=== PATIENT | male | born 1960 | race Caucasian/White ===

== ENCOUNTER 2023-08-02 20:01 | Observation (INO) ==
[2023-08-02 21:00] LABS: Albumin Globulin Ratio 1.6 (0.9-2); Albumin Level 4.6 gm/dl (3.4-5.0); BUN Creatinine Ratio 18.9 (10-20); Bilirubin,Total 0.6 mg/dl (0.2-1.0); Calcium 9.3 mg/dl (8.6-10.3); Creatinine Clr Calc Pharmacy 76.9 ml/min; Est GFR (African American) 81.5 ml/min; Est GFR (Non-African American) 70.3 ml/min; Globulin 2.8 gm/dl (2.5-4.0); Magnesium 2.1 mg/dl (1.7-2.4); Potassium 4.4 mmol/L (3.5-5.1); Total Protein 7.4 gm/dl (6.0-8.3)
[2023-08-02 21:06] LABS: Troponin I High Sensitivity 9.5 pg/ml (0-20)
[2023-08-02 21:11] LABS: Basophils # (auto) 0.02 K/uL (0.00-0.20); Basophils % (auto) 0.2 %; Eosinophils # (auto) 0.12 K/uL (0.00-0.50); Eosinophils % (auto) 1.4 %; Hematocrit (blood only) 48.9 % (42.0-52.0); Hemoglobin 16.6 g/dl (14.0-18.0); Immature Granulocytes # (auto) 0.06 K/uL (0.01-0.20); Immature Granulocytes % (auto) 0.7 %; Lymphocytes # (auto) 0.88 K/uL (1.20-3.40); Lymphocytes % (auto) 10.5 %; Mean Corpuscular Hemoglobin 30.3 pg (25.0-34.0); Mean Corpuscular Hgb Conc 33.9 g/dL (32.0-36.0); Mean Corpuscular Volume 89.2 fL (80.0-100.0); Mean Platelet Volume 10.6 fL (9.4-12.4); Monocytes # (auto) 0.63 K/uL (0.11-0.59); Monocytes % (auto) 7.5 %; Neutrophils # (auto) 6.68 K/uL (1.40-6.50); Neutrophils % (auto) 79.7 %; Platelet Count 235 K/uL (130-400); RDW Coefficient of Variation 12.5 % (11.5-14.5); RDW Standard Deviation 41.5 fL (36.4-46.3); Red Blood Count 5.48 M/uL (4.70-6.10); White Blood Count 8.39 K/ul (4.8-10.8)
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
[2023-08-02] MEDS: SODIUM CHLORIDE 0.9% 1,000 ML IV ONE (22:40)
--- NOTE | 2023-08-02 23:18 | CT Scan Report ---
Exam(s): CT C SPINE EXAM: CT Cervical Spine Without Intravenous Contrast CLINICAL HISTORY: Reason for exam: fall, head/neck injury. TECHNIQUE: Axial computed tomography images of the cervical spine without intravenous contrast. CTDI is 38 mGy and DLP is 624 mGy-cm. Automated exposure control was utilized for the study. A dose lowering technique was utilized adhering to the principles of ALARA. COMPARISON: CT 03/19/2015 FINDINGS: Vertebrae: No acute fracture or malalignment. Soft tissues: Unremarkable. IMPRESSION: No acute fracture or malalignment. Electronically signed by: Nabeel Siddiqui MD 08/02/23 23:16 PM
--- NOTE | 2023-08-02 23:19 | CT Scan Report ---
Exam(s): CT HEAD Without Contrast EXAM: CT Head Without Intravenous Contrast CLINICAL HISTORY: Reason for exam: fall, head/neck injury. TECHNIQUE: Axial computed tomography images of the head/brain without intravenous contrast. CTDI is 38 mGy and DLP is 624 mGy-cm. Automated exposure control was utilized for the study. A dose lowering technique was utilized adhering to the principles of ALARA. COMPARISON: MRI 08/11/2018 FINDINGS: Artifacts: Images are mildly degraded by motion artifact. Brain: No hemorrhage, extra-axial fluid collection, mass effect, or edema. Ventricles: Unremarkable. Bones/joints: Unremarkable. No fracture. Soft tissues: Unremarkable. Sinuses: No acute sinusitis. Mastoid air cells: Unremarkable as visualized. IMPRESSION: 1. No acute intracranial abnormality. Electronically signed by: Nabeel Siddiqui MD 08/02/23 23:18 PM
[2023-08-03] MEDS: LIDOCAINE/EPINEPH/TETRACAINE 1 EA SYR EXT STA (00:08)
[2023-08-03] MEDS: DIPHTHER/TETAN/PERTUS Vaccine (Tdap, Adol/Adult) 0.5mL IM ONE (00:08)
[2023-08-03 00:15] LABS: Appearance Urine Clear (Clear); Bilirubin Urine Negative (Negative); Blood Urine Negative (Negative); Color Urine Yellow; Glucose Urine UA 3+ (Negative); Ketones Urine Negative (Negative); Leukocyte Esterase Urine Negative (Negative); Nitrite Urine Negative (Negative); Protein Urine Negative (Negative); Specific Gravity Urine 1.022 (1.000-1.030); Urobilinogen Urine Negative (Negative); pH Urine 7.5 (4.5-7.5)
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
--- NOTE | 2023-08-03 00:39 | Emergency Department Note ---
ED Visit Note I was asked to repair this patient's scalp laceration by Dr. Burciaga. Please refer to his dictation for full details. In short, the patient had a syncopal episode and fell hitting his head. The patient has a 2 cm laceration to the posterior aspect of the scalp. The edges gape minimally apart with traction. No deep structures are seen injured within the base of the wound. No foreign bodies are noted. No active bleeding. Due to the concern that the patient may require additional CT scan or MRI imaging while inpatient, sutures were placed rather than gregory. Risks and benefits of the procedure were discussed. Verbal consent was obtained to perform the procedure and the procedure was performed by myself. Using sterile technique the wound was cleaned with Betadine. The area was sterilely draped. Let gel had been in place for 45 minutes for anesthesia of the wound. Once the patient was anesthetized, the wound was copiously irrigated under pressure with sterile saline. The wound was explored and was as described above. The laceration was repaired using 4 simple interrupted 5-0 nylon sutures with the wound edges being well approximated. The patient tolerated the procedure well. Hemostasis was achieved. The area was cleaned with sterile saline and dressed with bacitracin ointment and bandage. .
[2023-08-03] MEDS: AMITRIPTYLINE HCL 25 MG TAB PO ONE (01:23)
[2023-08-03] MEDS: MEMANTINE HCL 5 MG TAB PO ONE (01:23)
[2023-08-03] MEDS: CARBIDOPA/LEVODOPA 25/100MG TAB PO ONE (01:23)
[2023-08-03] MEDS: LACTATED RINGER'S 1,000 ML IV SCH (04:10)
[2023-08-03] MEDS ORDERED: GLUCOSE 40% GEL 15 GM TUBE PO PRN (04:16)
[2023-08-03] MEDS ORDERED: ALUMINUM/MAGNESIUM SUSP 30 ML UDC PO PRN (04:16)
[2023-08-03] MEDS ORDERED: MAGNESIUM HYDROXIDE SUSP 30 ML UDC PO PRN (04:16)
[2023-08-03] MEDS ORDERED: GLUCOSE 10 TAB/TUBE PO PRN (04:16)
[2023-08-03] MEDS ORDERED: POLYETHYLENE (MIRALAX) 17 GM PACK PO PRN (04:16)
[2023-08-03] MEDS ORDERED: GLUCAGON FOR INJ 1 MG VIAL SQ PRN (04:16)
[2023-08-03] MEDS ORDERED: ACETAMINOPHEN 325 MG TAB PO PRN (04:16)
[2023-08-03] MEDS ORDERED: CARBOHYDRATES FOR HYPOGLYCEMIA PO PRN (04:16)
[2023-08-03] MEDS ORDERED: DEXTROSE 50% 50 ML SYRINGE IV PRN (04:16)
[2023-08-03 04:53] LABS: Basophils # (auto) 0.02 K/uL (0.00-0.20); Basophils % (auto) 0.2 %; Eosinophils # (auto) 0.03 K/uL (0.00-0.50); Eosinophils % (auto) 0.2 %; Hematocrit (blood only) 46.6 % (42.0-52.0); Hemoglobin 15.9 g/dl (14.0-18.0); Immature Granulocytes # (auto) 0.06 K/uL (0.01-0.20); Immature Granulocytes % (auto) 0.5 %; Lymphocytes # (auto) 0.71 K/uL (1.20-3.40); Lymphocytes % (auto) 5.9 %; Mean Corpuscular Hemoglobin 30.6 pg (25.0-34.0); Mean Corpuscular Hgb Conc 34.1 g/dL (32.0-36.0); Mean Corpuscular Volume 89.6 fL (80.0-100.0); Mean Platelet Volume 10.3 fL (9.4-12.4); Monocytes # (auto) 1.03 K/uL (0.11-0.59); Monocytes % (auto) 8.5 %; Neutrophils # (auto) 10.27 K/uL (1.40-6.50); Neutrophils % (auto) 84.7 %; Platelet Count 214 K/uL (130-400); RDW Coefficient of Variation 12.7 % (11.5-14.5); RDW Standard Deviation 41.8 fL (36.4-46.3); White Blood Count 12.12 K/ul (4.8-10.8)
--- NOTE | 2023-08-03 05:02 | Critical Care Consultation ---
Date of Consultation August 03, 2023 Assessment & Plan (1) Syncope: (2) Complete heart block: (3) Pacemaker malfunction: (4) Laceration of scalp: (5) Parkinson disease, symptomatic: (6) Diabetes: (7) Hypertension: Plan Impression: 63 yom w/ PMH Pacemaker/AICD, DM type II, HTN, Parkinson's disease presents to the ICU following multiple episodes of syncope and fainting earlier the day in which he sustained a closed head injury. CT head and C-spine unremarkable. Had episode of complete heart block without pacemaker capture approximately 15 seconds in which she experienced presyncope in the emergency department. Admitted to ICU for close monitoring per cardiology request. Neuro - Closed head injury: Asymptomatic. Laceration to scalp with sutures and currently bandaged without issue. CT head negative for acute intracranial findings. CT spine unremarkable. Monitor Parkinson's diseasecontinue carbidopa/levodopa Cardiac - Complete heart block/pacemaker malfunctionpatient with approximately 15-second episode with complete heart block without capture of pacemaker on rhythm strip in which she experienced presyncopal episode. Per history, likely happening for the past 6 weeks. - Cardiology consulted, admitted to ICU - Pacer pads on patient - hold BB - No need for dopamine drip at this time - troponin pending, f/u TTE - continuous monitoring on ECG HTN- hold antihypertensives for now Respiratory - No history of pulmonary disease. Currently maintaining oxygen saturation on room air. Continuous monitoring pulse ox GI - N.p.o. for now RENAL/LYTES - Creatinine within normal limits, monitor routine BMPs and replete electrolytes as indicated LR @80 ml/hr - Strict I's and O's ENDO - DM type 2- continue sliding scale/ basal bolus. Currently euglycemic HEME - H/H stable, monitor routine cbc ID - No indication for infectious process at this time Thank you for allowing us to participate in the care of this patient. Please refer to my attending physician's documentation for any further recommendations. Supervising Physician Co-Signing Physician Notes I saw and evaluated the patient with MAURICIO Ramos, and agree with findings and plan as documented in the note. 63-year-old male presented to the hospital with complaints of syncope Past medical history: Parkinson's, status post pacemaker/ICD placement, hypertension Patient was sent to the ICU because he was found to have 15 seconds of no ventricular rhythm At the time of examination patient was not in any distress He denied any chest pain. No abdominal pain No nausea or vomiting No headache, no dizziness, no blurry vision Patient had another 5 seconds of no capture of the P waves overnight Constitutional: No acute distress HEENT: EOMI, PERRLA Respiratory system: Good air entry bilaterally, no wheeze, no rhonchi, mild crackles bilateral lower lobes CVS: S1-S2 positive, no murmurs or gallops Abdomen: Soft, nontender, nondistended, positive bowel sounds x4 Extremities: +2 pulses bilaterally radialis/ dorsalis pedis, no cyanosis, +1 pitting edema bilateral lower extremity Neuro: Awake alert oriented x3 Psych: Normal mood and affect G/U: No Burch --Prophylaxis VTE: IPC GI: None Lines: Peripheral Diet: N.p.o. Plan: In/out: +1000 mL Patient seems to be going into intermittent heart block, Cardiology has been consulted to look into his AICD Continue to monitor on telemetry. Hold blood pressure medication keep him n.p.o. till cardiology sees the patient Follow-up magnesium and phosphorus Please note the above document was generated using voice recognition software. It may contain grammatical, syntax or spelling errors.Any formal questions or concerns about the content, text or information contained within the body of this dictation should be directly addressed to the provider for clarification. History of Present Illness Attending Physician: Armando James MD History of Present Illness The patient is a 63-year-old male with past medical history significant for HTN, pacemaker/ICD, Parkinson's disease, who presented to the emergency department after sustaining a fall at the grocery store in which she lost consciousness and presented with laceration to the back of his head. CT head and CT spine negative. He received sutures to the laceration to the head, and has no neurological deficits. He has been having episodes of syncope over the last 4 to 6 weeks, in which he feels abdominal pain prior to dizziness or sometimes losing consciousness. In the emergency department, he again had an episode in which he began to have abdominal pain followed by presyncope. On the monitor at that time, patient went into complete heart block with failure to capture on pacemaker for approximately 15 seconds. Following this event, the patient is asymptomatic. This is the third episode the patient has had in the past 24 hours. Cardiology consulted and recommended admitting to ICU for further management. On arrival to the ICU the patient is alert and oriented without acute distress, and is hemodynamically stable without use of vasopressors. Currently maintaining oxygen saturation on room air. He currently denies headache, dizziness, weakness or numbness, changes in vision, recent illness or fevers, cough or congestion, sore throat, chest pain or palpitations, shortness of breath, back pain, swelling hands or feet, changes in gait. Allergies Allergy/AdvReac Type Severity Reaction Status Date / Time azithromycin AdvReac Vomiting Verified 08/03/23 00:09 Home Medications Medication Instructions Recorded Confirmed Type amitriptyline 25 mg tablet 25 mg PO HS 08/03/23 08/03/23 History aspirin 81 mg tablet,delayed 81 mg PO QAM 08/03/23 08/03/23 History release carbidopa 25 mg-levodopa 100 mg 1.5 tab PO TID 08/03/23 08/03/23 History tablet carvedilol 6.25 mg tablet 6.25 mg PO AMHS 08/03/23 08/03/23 History empagliflozin 10 mg tablet 10 mg PO QAM 08/03/23 08/03/23 History (Jardiance) escitalopram oxalate 10 mg tablet 15 mg PO QAM 08/03/23 08/03/23 History memantine 5 mg tablet 5 mg PO [facility] 08/03/23 08/03/23 History omeprazole 40 mg capsule,delayed 40 mg PO DAILYBB 08/03/23 08/03/23 History release rasagiline 0.5 mg tablet 0.5 mg PO QA 08/03/23 08/03/23 History simvastatin 20 mg tablet 20 mg PO HS 08/03/23 08/03/23 History Patient History Social History Smoking Status: Never smoker Second Hand Exposure: No; Do You Dip or Chew Tobacco: No; Tobacco Cessation Education Requested by Patient: No Hx Alcohol Use: No Hx Substance Use: No Preferred Language: Gibraltarian Communication Ability: Effective Tool And Die Designer Required: No Beliefs That Will Affect Care: None Current Living Situation: Alone Other Information That Helps Us Care for You: No Feels Safe at Home: Yes Safety Concerns: Feels Safe At This Time Assistive Devices: Glasses Review of Systems 2 Review of Systems: All systems reviewed & are unremarkable except as noted in HPI & below Physical Exam 2 Constitutional: cooperative and comfortable Eyes: PERRL, conjunctivae normal, anicteric sclerae ENMT: external ear and nose normal, oropharynx normal Neck: trachea midline, no thyromegaly Respiratory: normal respiratory effort, lungs clear to auscultation Cardiovascular: RRR, no murmur, no edema Heart Sounds: normal S1 and normal S2; no murmur Extremities: no edema Gastrointestinal (Abdomen): normal bowel sounds, soft, nontender, no hepatosplenomegaly Musculoskeletal: no cyanosis or clubbing, extremities motor strength 5/5 Skin: no rashes, warm and dry Neurologic: PERRL, EOMI, accommodation nl, no face palsy, no dysarthria Psychiatric: A+Ox3, euthymic affect Results & Data Results & Data Vital Signs (Past 12 Hours) Vital Signs Temp Pulse Pulse Resp BP BP Pulse Ox 08/03/23 04:18 36.5 C 75 18 142/80 H 95 08/03/23 04:09 78 17 95 08/03/23 04:03 08/03/23 03:51 100 H 13 08/03/23 02:21 86 16 08/03/23 02:15 92 H 24 08/03/23 02:09 83 24 155/91 H 08/03/23 02:03 79 08/03/23 01:59 18 L 08/03/23 01:42 85 14 08/03/23 01:03 82 18 08/03/23 00:51 96 H 25 H 08/03/23 00:42 93 H 22 08/03/23 00:33 86 24 08/03/23 00:12 87 20 08/03/23 00:12 85 08/02/23 23:12 88 14 08/02/23 23:06 90 14 08/02/23 23:00 176/99 H 08/02/23 22:45 81 16 08/02/23 21:39 78 13 163/93 H 08/02/23 21:00 82 17 177/95 H 08/02/23 20:30 76 16 176/97 H 98 08/02/23 20:19 37.2 C 75 18 182/107 H 97 08/02/23 20:07 82 O2 Del Method 08/03/23 04:18 Room Air 08/03/23 04:09 08/03/23 04:03 Room Air 08/03/23 03:51 08/03/23 02:21 08/03/23 02:15 08/03/23 02:09 08/03/23 02:03 08/03/23 01:59 08/03/23 01:42 08/03/23 01:03 08/03/23 00:51 08/03/23 00:42 08/03/23 00:33 08/03/23 00:12 08/03/23 00:12 08/02/23 23:12 08/02/23 23:06 08/02/23 23:00 08/02/23 22:45 08/02/23 21:39 08/02/23 21:00 08/02/23 20:30 Room Air 08/02/23 20:19 Room Air 08/02/23 20:07 Laboratory Results 08/03/23 04:33 08/03/23 04:33 Coding Level of Care Code 08379 IN/OBS CONSULT LVL 5,80M Diagnoses Syncope R55 Syncope type: unspecified Complete heart block I44.2 Pacemaker malfunction T82.111A Laceration of scalp S01.01XA Encounter type: initial encounter Parkinson disease, symptomatic G20.A1 Diabetes E11.9 Hypertension I10 Time Spent (min) 52 (1) Syncope Syncope type: unspecified Qualified Code(s): R55 - Syncope and collapse (4) Laceration of scalp Encounter type: initial encounter Qualified Code(s): S01.01XA - Laceration without foreign body of scalp, initial encounter
[2023-08-03 05:07] LABS: BUN Creatinine Ratio 19.8 (10-20); Calcium 8.8 mg/dl (8.6-10.3); Creatinine Clr Calc Pharmacy 88.9 ml/min; Est GFR (African American) 97.1 ml/min; Est GFR (Non-African American) 83.8 ml/min; Potassium 4.2 mmol/L (3.5-5.1)
[2023-08-03] MEDS: INSULIN ASPART PER UNIT CHARGE SC SCH ×2 (05:09→11:39)
--- NOTE | 2023-08-03 06:35 | XRay Report ---
XR chest 1V portable CLINICAL HISTORY: Syncopal episode. COMPARISON STUDY: Chest radiograph March 19, 2015. FINDINGS: Left subclavian pacer/AICD is in place. Lung volumes are normal. Lungs are clear. There is no pneumothorax or pleural effusion. Cardiac size is normal. Mediastinal contours are normal. There i s no evidence for pulmonary edema. IMPRESSION: No acute cardiopulmonary findings. ACT 112: Negative or not required by law. Electronically signed by: Broderick Price M.D. 08/03/2023 6:33 AM
[2023-08-03 07:08] LABS: Estimated Average Glucose 123 mg/dl; Hemoglobin A1C 5.9 % (4.5-5.6)
[2023-08-03 07:24] LABS: Troponin I High Sensitivity 15.5 pg/ml (0-20)
[2023-08-03] MEDS: CARBIDOPA/LEVODOPA 25/100MG TAB PO SCH (08:24)
[2023-08-03] MEDS: MEMANTINE HCL 5 MG TAB PO SCH (08:25)
[2023-08-03] MEDS: ESCITALOPRAM OXALATE 10 MG TAB PO SCH (08:25)
[2023-08-03 08:46] LABS: Phosphorus 3.7 mg/dl (2.5-4.9)
--- NOTE | 2023-08-03 10:23 | Cardiology Consultation ---
Date of Consultation August 03, 2023 Assessment & Plan (1) Syncope: (2) Complete heart block: (3) Pacemaker malfunction: Plan 1. Complete heart block: He likely has an element of conduction disease at the time of the initial implant. Does appear to have intermittent episodes of complete heart block. At other times he conducts normally and appeared to have normal complex QRS. 2. Syncope: It seems likely that his events are associated with ventricular non capture. The pacing outputs on the left bundle pacing lead were very close to the pacing threshold. The right ventricular lead was programmed sub threshold. His symptoms seem to be reproduced with the events noted on telemetry. 3. Dual-chamber Medtronic ICD: Overall normal function, slightly elevated pacing threshold on left bundle lead. Device was reprogrammed today for higher outputs on the left bundle lead and pacing output above the threshold on the right ventricular lead currently pacing and refractory. 4. Nonischemic cardiomyopathy: We do not have an evaluation of left ventricular function, but he does not appear to have symptoms consistent with congestive heart failure. He is on a medical regimen to consist of carvedilol and Jardiance. Based on his good functional status I do not think we need to adjust these today and he can follow up with his regular revenue audit clerk for routine evaluation. History of Present Illness Reason for Consultation: Syncope, ICD malfunction Requesting Physician: Shelby Attending Physician: Ambar Rojas MD History of Present Illness The patient is a 63-year-old gentleman with a reported history of a nonischemic cardiomyopathy who underwent implantation of biventricular ICD with left bundle pacing in 2019. He recalls being told at that time that he had some irregularity in his heartbeat. He does recall having a reduced ejection fraction and undergoing cardiac catheterization. Did not report any coronary interventions. Over the past several weeks he has been having episodes of syncope. These are preceded by a feeling of a hot bag machine adjuster his abdomen followed by generalized sensation of warmth in the abdomen, dizziness and eventually syncope. These episodes appear to be fairly random and are not associated with changes in position. Yesterday he had an episode while shopping which resulted in a small head injury. While in our emergency room he was noted to have an episode of ventricular asystole and complete heart block. This was associated with his typical symptoms. This morning around 730 another episode was witnessed on telemetry again associated with his typical symptoms. In general the patient is very active. He states that he is able to push a program strategist, do routine activity and exercise on a treadmill. He does not report limiting dyspnea or shortness of breath. He does not have exertional chest pain. He is generally not aware of any palpitations. Outside of the episodes noted above over the past several weeks he has not had dizziness or prior syncope. He cannot recall ever receiving therapy from his device. Allergies Allergy/AdvReac Type Severity Reaction Status Date / Time azithromycin AdvReac Vomiting Verified 08/03/23 00:09 Home Medications Medication Instructions Recorded Confirmed Type amitriptyline 25 mg tablet 25 mg PO HS 08/03/23 08/03/23 History aspirin 81 mg tablet,delayed 81 mg PO QAM 08/03/23 08/03/23 History release carbidopa 25 mg-levodopa 100 mg 1.5 tab PO TID 08/03/23 08/03/23 History tablet carvedilol 6.25 mg tablet 6.25 mg PO AMHS 08/03/23 08/03/23 History empagliflozin 10 mg tablet 10 mg PO QAM 08/03/23 08/03/23 History (Jardiance) escitalopram oxalate 10 mg tablet 15 mg PO QAM 08/03/23 08/03/23 History memantine 5 mg tablet 5 mg PO AMHS 08/03/23 08/03/23 History omeprazole 40 mg capsule,delayed 40 mg PO DAILYBB 08/03/23 08/03/23 History release rasagiline 0.5 mg tablet 0.5 mg PO QAM 08/03/23 08/03/23 History simvastatin 20 mg tablet 20 mg PO HS 08/03/23 08/03/23 History Patient History Social History Smoking Status: Never smoker Second Hand Exposure: No; Do You Dip or Chew Tobacco: No; Tobacco Cessation Education Requested by Patient: No Hx Alcohol Use: No Hx Substance Use: No Preferred Language: Pashto Communication Ability: Effective Equipment Installation Professional Required: No Beliefs That Will Affect Care: None Current Living Situation: Alone Other Information That Helps Us Care for You: No Feels Safe at Home: Yes Safety Concerns: Feels Safe At This Time Assistive Devices: Glasses Review of Systems Review of Systems: Per HPI. Anxious. Physical Exam Physical Exam: The patient is alert and oriented. Mood and affect appeared normal. He answered all questions appropriately. HEENT: Pupils are equal and reactive to light and accommodation. Extraocular movements are intact. The sclerae are anicteric. Neuro: Cranial nerves intact. Resting tremor noted Chest: Well-healed device implant site in left upper pectoral area. Lungs: Clear to auscultation bilaterally. He has good air movement without use of accessory muscles. No rales wheezes or rhonchi. Cardiac: Heart demonstrates a regular rate and rhythm. Rare ectopy. Normal S1 and S2. No murmurs on examination. Pulses: The patient has palpable radial pulses bilaterally that are equal in intensity Extremities: There was no evidence of hypoperfusion. There is no cyanosis or clubbing. There is no edema. Skin: I did not appreciate any rashes on examination today. Results & Data Vital Signs (Past 12 Hours) Vital Signs Temp Pulse Pulse Resp BP BP Pulse Ox 08/03/23 10:00 146/84 H 08/03/23 09:07 37.8 C H 08/03/23 09:00 177/89 H 08/03/23 08:24 74 21 174/104 H 95 08/03/23 08:00 08/03/23 07:18 81 17 95 08/03/23 07:00 37.1 C 155/84 H 08/03/23 06:03 75 19 94 08/03/23 05:06 78 16 140/68 95 08/03/23 04:51 74 15 95 08/03/23 04:30 83 25 H 97 08/03/23 04:27 77 17 94 08/03/23 04:18 36.5 C 75 18 142/80 H 95 08/03/23 04:09 78 17 95 08/03/23 04:03 08/03/23 03:51 100 H 13 08/03/23 02:21 86 16 08/03/23 02:15 92 H 24 08/03/23 02:09 83 24 155/91 H 08/03/23 02:03 79 08/03/23 01:59 18 L 08/03/23 01:42 85 14 08/03/23 01:03 82 18 08/03/23 00:51 96 H 25 H 08/03/23 00:42 93 H 22 08/03/23 00:33 86 24 08/03/23 00:12 87 20 08/03/23 00:12 85 08/02/23 23:12 88 14 08/02/23 23:06 90 14 08/02/23 23:00 176/99 H 08/02/23 22:45 81 16 O2 Del Method 08/03/23 10:00 08/03/23 09:07 08/03/23 09:00 08/03/23 08:24 08/03/23 08:00 Room Air 08/03/23 07:18 08/03/23 07:00 08/03/23 06:03 08/03/23 05:06 08/03/23 04:51 08/03/23 04:30 08/03/23 04:27 08/03/23 04:18 Room Air 08/03/23 04:09 08/03/23 04:03 Room Air 08/03/23 03:51 08/03/23 02:21 08/03/23 02:15 08/03/23 02:09 08/03/23 02:03 08/03/23 01:59 08/03/23 01:42 08/03/23 01:03 08/03/23 00:51 08/03/23 00:42 08/03/23 00:33 08/03/23 00:12 08/03/23 00:12 08/02/23 23:12 08/02/23 23:06 08/02/23 23:00 08/02/23 22:45 Laboratory Results Abnormal Lab Results 08/02/23 08/03/23 08/03/23 20:17 04:33 Unknown WBC 8.39 12.12 H RBC 5.48 5.20 Hgb 16.6 15.9 Hct 48.9 46.6 MCV 89.2 89.6 MCH 30.3 30.6 MCHC 33.9 34.1 RDW Std Deviation 41.5 41.8 RDW Coeff of Morgan 12.5 12.7 Plt Count 235 214 MPV 10.6 10.3 Immature Gran % (Auto) 0.7 0.5 Neut % (Auto) 79.7 84.7 Lymph % (Auto) 10.5 5.9 Gu[place]upe % (Auto) 7.5 8.5 Eos % (Auto) 1.4 0.2 Baso % (Auto) 0.2 0.2 Neut # (Auto) 6.68 H 10.27 H Lymph # (Auto) 0.88 L 0.71 L Gu[place]upe # (Auto) 0.63 H 1.03 H Eos # (Auto) 0.12 0.03 Baso # (Auto) 0.02 0.02 Immature Gran # (Auto) 0.06 0.06 Sodium 137 137 Potassium 4.4 4.2 Chloride 100 104 Carbon Dioxide 30 28 Anion Gap 7 5 BUN 21 19 Creatinine 1.11 0.96 Est Cr Clr Drug Dosing 76.9 88.9 Est GFR ( Amer) 81.5 97.1 Est GFR (Non-Af Amer) 70.3 83.8 BUN/Creatinine Ratio 18.9 19.8 Glucose 176 H 128 H Estimat Average Glucose 123 Hemoglobin A1c 5.9 H Calcium 9.3 8.8 Phosphorus 3.7 Magnesium 2.1 2.0 Total Bilirubin 0.6 AST 26 ALT 30 Alkaline Phosphatase 75 Troponin I High Sens 9.5 15.5 D Total Protein 7.4 Albumin 4.6 Globulin 2.8 Albumin/Globulin Ratio 1.6 Urine Color Yellow Urine Appearance Clear Urine pH 7.5 Ur Specific Roy 1.022 Urine Protein Negative Urine Glucose (UA) 3+ H Urine Ketones Negative Urine Blood Negative Urine Nitrite Negative Urine Bilirubin Negative Urine Urobilinogen Negative Ur Leukocyte Esterase Negative Diagnostic Findings I performed a complete evaluation of the patient's Medtronic biventricular ICD. It seems that the left bundle pacing output was programmed very close to the current pacing threshold. There did not appear to be reliable capture on telemetry. The right ventricular lead is programmed to very low output which is some threshold. No ventricular arrhythmias identified. Good sensing on all leads. ECG Additional Comments: Capture both atrial and ventricular leads with intermittent PVCs. PG Care Time/CCT Total # of Minutes Spent Total Time Spent with Patient: Total time spent is greater than 50% in coordination of care (as documented) at patient's floor/unit and/or counseling patient: Coding Level of Care Code 00321 INT INP/OBS CARE 75MIN Diagnoses Syncope R55 Syncope type: unspecified Complete heart block I44.2 Pacemaker malfunction T82.111A CPT Codes Implantable Defib Multi lead programming - 31444 ([id number]) 26 - PROFESSIONAL COMPONENT (1) Syncope Syncope type: unspecified Qualified Code(s): R55 - Syncope and collapse
--- NOTE | 2023-08-03 10:28 | Gastrointestinal Consultation ---
Date of Consultation August 03, 2023 Assessment & Plan (1) Pacemaker malfunction: (2) Complete heart block: Plan Abdominal pain in the setting of heart block which is now resolved. Unlikely GI in nature. -Appreciate cardiology recommendations. -No plan for GI work up. -Supportive care per primary team. -Will sign off. Thank you for allowing us to participate in the care of this patient. If you have any questions or concerns, please do not hesitate to contact us. History of Present Illness Reason for Consultation: Concern for PUD Requesting Physician: Dr. Ryan Attending Physician: Ambar Rojas MD History of Present Illness Patient is a 63 y.o. male with a history of cardiomyopathy and implanted biventricular ICD/pacemaker admitted after a syncope episode at a local grocery store. He reports having multiple episodes of dizziness with associated syncope and upper abdominal pain that was burning in nature prior to admission. He was found to have complete heart block and pacemaker malfunction. He did have transcutaneous pacing and has been evaluated by cardiology. Patient is reporting resolution of symptoms and is doing well clinically at present. H&H is normal. Allergies Allergy/AdvReac Type Severity Reaction Status Date / Time azithromycin AdvReac Vomiting Verified 08/03/23 00:09 Home Medications Medication Instructions Recorded Confirmed Type amitriptyline 25 mg tablet 25 mg PO HS 08/03/23 08/03/23 History aspirin 81 mg tablet,delayed 81 mg PO QAM 08/03/23 08/03/23 History release carbidopa 25 mg-levodopa 100 mg 1.5 tab PO TID 08/03/23 08/03/23 History tablet carvedilol 6.25 mg tablet 6.25 mg PO AMHS 08/03/23 08/03/23 History empagliflozin 10 mg tablet 10 mg PO QAM 08/03/23 08/03/23 History (Jardiance) escitalopram oxalate 10 mg tablet 15 mg PO QAM 08/03/23 08/03/23 History memantine 5 mg tablet 5 mg PO AMHS 08/03/23 08/03/23 History omeprazole 40 mg capsule,delayed 40 mg PO DAILYBB 08/03/23 08/03/23 History release rasagiline 0.5 mg tablet 0.5 mg PO QAM 08/03/23 08/03/23 History simvastatin 20 mg tablet 20 mg PO HS 08/03/23 08/03/23 History Patient History Social History Smoking Status: Never smoker Second Hand Exposure: No; Do You Dip or Chew Tobacco: No; Tobacco Cessation Education Requested by Patient: No Hx Alcohol Use: No Hx Substance Use: No Preferred Language: Ukrainian Communication Ability: Effective Safety Risk Lead Required: No Beliefs That Will Affect Care: None Current Living Situation: Alone Other Information That Helps Us Care for You: No Feels Safe at Home: Yes Safety Concerns: Feels Safe At This Time Assistive Devices: Glasses Review of Systems Constitutional: no problem reported Cardiovascular: as per Subjective / HPI Gastrointestinal: as per Subjective / HPI Physical Exam Constitutional: WD/WN, vitals as above Respiratory: normal respiratory effort, lungs clear to auscultation Cardiovascular: RRR, no murmur, no edema Gastrointestinal (Abdomen): normal bowel sounds, soft, nontender, no hepatosplenomegaly Psychiatric: A+Ox3, euthymic affect Results & Data Vital Signs (Past 12 Hours) Vital Signs Temp Pulse Pulse Resp BP BP Pulse Ox 08/03/23 10:00 146/84 H 08/03/23 09:07 37.8 C H 08/03/23 09:00 177/89 H 08/03/23 08:24 74 21 174/104 H 95 08/03/23 08:00 08/03/23 07:18 81 17 95 08/03/23 07:00 37.1 C 155/84 H 08/03/23 06:03 75 19 94 08/03/23 05:06 78 16 140/68 95 08/03/23 04:51 74 15 95 08/03/23 04:30 83 25 H 97 08/03/23 04:27 77 17 94 08/03/23 04:18 36.5 C 75 18 142/80 H 95 08/03/23 04:09 78 17 95 08/03/23 04:03 08/03/23 03:51 100 H 13 08/03/23 02:21 86 16 08/03/23 02:15 92 H 24 08/03/23 02:09 83 24 155/91 H 08/03/23 02:03 79 08/03/23 01:59 18 L 08/03/23 01:42 85 14 08/03/23 01:03 82 18 08/03/23 00:51 96 H 25 H 08/03/23 00:42 93 H 22 08/03/23 00:33 86 24 08/03/23 00:12 87 20 08/03/23 00:12 85 08/02/23 23:12 88 14 08/02/23 23:06 90 14 08/02/23 23:00 176/99 H 08/02/23 22:45 81 16 O2 Del Method 08/03/23 10:00 08/03/23 09:07 08/03/23 09:00 08/03/23 08:24 08/03/23 08:00 Room Air 08/03/23 07:18 08/03/23 07:00 08/03/23 06:03 08/03/23 05:06 08/03/23 04:51 08/03/23 04:30 08/03/23 04:27 08/03/23 04:18 Room Air 08/03/23 04:09 08/03/23 04:03 Room Air 08/03/23 03:51 08/03/23 02:21 08/03/23 02:15 08/03/23 02:09 08/03/23 02:03 08/03/23 01:59 08/03/23 01:42 08/03/23 01:03 08/03/23 00:51 08/03/23 00:42 08/03/23 00:33 08/03/23 00:12 08/03/23 00:12 08/02/23 23:12 08/02/23 23:06 08/02/23 23:00 08/02/23 22:45 Diagnostic Findings Laboratory Results WBC 12.12 K/ul (4.8-10.8) H 08/03/23 04:33 RBC 5.20 M/uL (4.70-6.10) 08/03/23 04:33 Hgb 15.9 g/dl (14.0-18.0) 08/03/23 04:33 Hct 46.6 % (42.0-52.0) 08/03/23 04:33 MCV 89.6 fL (80.0-100.0) 08/03/23 04:33 MCH 30.6 pg (25.0-34.0) 08/03/23 04:33 MCHC 34.1 g/dL (32.0-36.0) 08/03/23 04:33 RDW Std Deviation 41.8 fL (36.4-46.3) 08/03/23 04:33 RDW Coeff of Morgan 12.7 % (11.5-14.5) 08/03/23 04:33 Plt Count 214 K/uL (130-400) 08/03/23 04:33 MPV 10.3 fL (9.4-12.4) 08/03/23 04:33 Immature Gran % (Auto) 0.5 % 08/03/23 04:33 Neut % (Auto) 84.7 % 08/03/23 04:33 Lymph % (Auto) 5.9 % 08/03/23 04:33 [place] % (Auto) 8.5 % 08/03/23 04:33 Eos % (Auto) 0.2 % 08/03/23 04:33 Baso % (Auto) 0.2 % 08/03/23 04:33 Neut # (Auto) 10.27 K/uL (1.40-6.50) H 08/03/23 04:33 Lymph # (Auto) 0.71 K/uL (1.20-3.40) L 08/03/23 04:33 [place] # (Auto) 1.03 K/uL (0.11-0.59) H 08/03/23 04:33 Eos # (Auto) 0.03 K/uL (0.00-0.50) 08/03/23 04:33 Baso # (Auto) 0.02 K/uL (0.00-0.20) 08/03/23 04:33 Immature Gran # (Auto) 0.06 K/uL (0.01-0.20) 08/03/23 04:33 Sodium 137 mmol/L (136-145) 08/03/23 04:33 Potassium 4.2 mmol/L (3.5-5.1) 08/03/23 04:33 Chloride 104 mmol/L (98-107) 08/03/23 04:33 Carbon Dioxide 28 mmol/L (21-32) 08/03/23 04:33 Anion Gap 5 (3-11) 08/03/23 04:33 BUN 19 mg/dl (6-23) 08/03/23 04:33 Creatinine 0.96 mg/dl (0.6-1.4) 08/03/23 04:33 Est Cr Clr Drug Dosing 88.9 ml/min 08/03/23 04:33 Est GFR ( Amer) 97.1 ml/min 08/03/23 04:33 Est GFR (Non-Af Amer) 83.8 ml/min 08/03/23 04:33 BUN/Creatinine Ratio 19.8 (10-20) 08/03/23 04:33 Glucose 128 mg/dl (70-99(Fasting)) H 08/03/23 04:33 Estimat Average Glucose 123 mg/dl 08/03/23 04:33 Hemoglobin A1c 5.9 % (4.5-5.6) H 08/03/23 04:33 Calcium 8.8 mg/dl (8.6-10.3) 08/03/23 04:33 Phosphorus 3.7 mg/dl (2.5-4.9) 08/03/23 04:33 Magnesium 2.0 mg/dl (1.7-2.4) 08/03/23 04:33 Total Bilirubin 0.6 mg/dl (0.2-1.0) 08/02/23 20:17 AST 26 U/L (13-39) 08/02/23 20:17 ALT 30 U/L (7-52) 08/02/23 20:17 Alkaline Phosphatase 75 U/L (34-104) 08/02/23 20:17 Troponin I High Sens 15.5 pg/ml (0-20) D 08/03/23 04:33 Total Protein 7.4 gm/dl (6.0-8.3) 08/02/23 20:17 Albumin 4.6 gm/dl (3.4-5.0) 08/02/23 20:17 Globulin 2.8 gm/dl (2.5-4.0) 08/02/23 20:17 Albumin/Globulin Ratio 1.6 (0.9-2) 08/02/23 20:17 Urine Color Yellow 08/03/23 Unknown Urine Appearance Clear (Clear) 08/03/23 Unknown Urine pH 7.5 (4.5-7.5) 08/03/23 Unknown Ur Specific [place] 1.022 (1.000-1.030) 08/03/23 Unknown Urine Protein Negative (Negative) 08/03/23 Unknown Urine Glucose (UA) 3+ (Negative) H 08/03/23 Unknown Urine Ketones Negative (Negative) 08/03/23 Unknown Urine Blood Negative (Negative) 08/03/23 Unknown Urine Nitrite Negative (Negative) 08/03/23 Unknown Urine Bilirubin Negative (Negative) 08/03/23 Unknown Urine Urobilinogen Negative (Negative) 08/03/23 Unknown Ur Leukocyte Esterase Negative (Negative) 08/03/23 Unknown Impressions Chest X-Ray 08/02/23 20:31 XR chest 1V portable CLINICAL HISTORY: Syncopal episode. COMPARISON STUDY: Chest radiograph March 19, 2015. FINDINGS: Left subclavian pacer/AICD is in place. Lung volumes are normal. Lungs are clear. There is no pneumothorax or pleural effusion. Cardiac size is normal. Mediastinal contours are normal. There is no evidence for pulmonary edema. IMPRESSION: No acute cardiopulmonary findings. ACT 112: Negative or not required by law. Electronically signed by: Broderick Price M.D. 08/03/2023 6:[address] 08/02/23 22:07 Exam(s): CT C SPINE EXAM: CT Cervical Spine Without Intravenous Contrast CLINICAL HISTORY: Reason for exam: fall, head/neck injury. TECHNIQUE: Axial computed tomography images of the cervical spine without intravenous contrast. CTDI is 38 mGy and DLP is 624 mGy-cm. Automated exposure control was utilized for the study. A dose lowering technique was utilized adhering to the principles of ALARA. COMPARISON: CT 03/19/2015 FINDINGS: Vertebrae: No acute fracture or malalignment. Soft tissues: Unremarkable. IMPRESSION: No acute fracture or malalignment. Electronically signed by: Nabeel Siddiqui MD 08/02/23 23:[address] 08/02/23 22:07 Exam(s): CT HEAD Without Contrast EXAM: CT Head Without Intravenous Contrast CLINICAL HISTORY: Reason for exam: fall, head/neck injury. TECHNIQUE: Axial computed tomography images of the head/brain without intravenous contrast. CTDI is 38 mGy and DLP is 624 mGy-cm. Automated exposure control was utilized for the study. A dose lowering technique was utilized adhering to the principles of ALARA. COMPARISON: MRI 08/11/2018 FINDINGS: Artifacts: Images are mildly degraded by motion artifact. Brain: No hemorrhage, extra-axial fluid collection, mass effect, or edema. Ventricles: Unremarkable. Bones/joints: Unremarkable. No fracture. Soft tissues: Unremarkable. Sinuses: No acute sinusitis. Mastoid air cells: Unremarkable as visualized. IMPRESSION: 1. No acute intracranial abnormality. Electronically signed by: Nabeel Siddiqui MD 08/02/23 23:18 PM PG Care Time/CCT Total # of Minutes Spent Total Time Spent with Patient: Total time spent is greater than 50% in coordination of care (as documented) at patient's floor/unit and/or counseling patient: Coding Level of Care Code 92158 INT INP/OBS CARE 3/75MIN Diagnoses Pacemaker malfunction T82.111A Complete heart block I44.2
[2023-08-03] MEDS: carvediloL 6.25 MG TAB PO SCH (10:38)
[2023-08-03] MEDS: ASPIRIN 81 MG ECTAB PO SCH (10:38)
[2023-08-03] MEDS: Nursing to Pharmacy Communication SCH (10:58)
--- NOTE | 2023-08-03 11:57 | Discharge Summary ---
Date of Service August 03, 2023 Admission HPI Per Admitting Provider 63 y/o male with a PMHx of parkinson's, hypertension, pacemaker/ICD placement presents after a fall. Patient with intermittent syncope/pre-syncope over the last 4-6 weeks. 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 Has been interrogated recently without issue. Was seen at [place] multiple times for a similar set of symptoms. Patient typically having about 1 episode daily - sharp /hot nazia lump inspector his abdomen that will travel up, then feels off/unsteady. Will then go to/fall to the floor. Has 2 episodes prior to arrival to ED. First was witnessed by friends. No loss of consciousness. Second was in the grocery store and he was found down. He did strike his head. No CP or SOB. No fevers or chills. No headaches or vision changes. No abdominal pain/nausea/vomiting/constipation. Patient has a medium firmness BM every 3 days. Did have liquid stools today. No associated cramping. Patient's defibrillator defibrillator settings were adjusted, no pauses observed on telemetry. Patient denies any dizziness chest pain or shortness of breath. As per cardiology he can be discharged home today, follow-up with primary page technician at [facility] Diagnosis syncope due to pauses Discharge Exam head atraumatic neck supple chest CTA heart S1S2 regular abdomen soft, nt, nd, BS extremities no edema Discharge Data Allergies Allergy/AdvReac Type Severity Reaction Status Date / Time azithromycin AdvReac Vomiting Verified 08/03/23 00:09 Consultations 08/03/23 00:23 ED Decision to Admit Stat 08/03/23 02:09 Consult Voting Machine Repairer Stat 08/03/23 04:16 Consult Cardiology Routine Consult Gastroenterology Routine Ordered Studies 08/02/23 22:07 CT cervical spine wo con Stat CT head/brain wo con Stat Hospital Course (1) Pacemaker malfunction: (2) Complete heart block: (3) Hypertension: (4) Diabetes: (5) Parkinson disease, symptomatic: Plan Patient with intermittent syncope/pre-syncope over the last 4-6 weeks. 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 Has been interrogated recently without issue. Was seen at [place] multiple times for a similar set of symptoms. Patient typically having about 1 episode daily - sharp/hot nazia lump inspector his abdomen that will travel up, then feels off/unsteady. Will then go to/fall to the floor. Has 2 episodes prior to this episode, his device was interrogated, reprogrammed, functioning well. Patient can be discharged home in stable condition Total Time Total Time Spent Total Time Spent (In Minutes): 45 Discharge Plan Discharge Items Patient Disposition: Home - Self-Care Reason For Visit: SYNCOPE Discharge Diagnosis: syncope Activity: Resume your previous activity Non-emergency contact: Primary Care Provider Call non-emergency contact if: you have any medication questions Follow-up/Referrals: Nitesh Pulliam MD [Primary Care Provider] - Diet: Carb Consistent or DM2 and Heart Healthy Addtl Attending Provider Instructions: follow up with primary page technician Pending Studies at Discharge: No Stand-Alone Forms: My [facility], Smoking Cessation Medications and DC Order Prescriptions: No Action simvastatin 20 mg tablet 20 mg PO HS omeprazole 40 mg capsule,delayed release(DR/EC) 40 mg PO DAILYBB escitalopram oxalate 10 mg tablet 15 mg PO QAM amitriptyline 25 mg tablet 25 mg PO HS memantine 5 mg tablet 5 mg PO AMHS carbidopa-levodopa 25-100 mg Tablet 1.5 tab PO TID Rx Instructions: TAKE THIS MED AT 8AM, 4PM, AND 8PM rasagiline 0.5 mg tablet 0.5 mg PO QAM carvedilol 6.25 mg tablet 6.25 mg PO AMHS aspirin [Aspir-Low] 81 mg Tablet,Delayed Release (Dr/Ec) 81 mg PO QAM Jardiance 10 mg tablet 10 mg PO QAM Rx Instructions: TAKE THIS MED DAILY WITH BREAKFAST FOR CARDIAC ISSUES, NOT DIABETES. Discharge Orders: Discharge Order (Routine); Ordered 08/03/23 Ordered By: Ambar Wang/Other Patient Handouts: Living with a Pacemaker, Heart Block 3rd Degree, ED Pacemaker Failure Admission Data Admit Date/Time: 08/03/23 01:10 Attending Provider: Ambar Rojas Admit Provider: Jazlyn Ryan Primary Care Provider: Nitesh Pulliam Other Providers: Armando James; Wil Jones; Mati Hudson; Juan Gabriel Other Interventions: Discharge Summary Assessment (RN) Last Done: 08/03/23 11:08 Coding Level of Care Code 17789 INP/OBS DISCH >30 MIN Diagnoses Pacemaker malfunction T82.111A Complete heart block I44.2 Hypertension I10 Diabetes E11.9 Parkinson disease, symptomatic G20.A1
--- NOTE | 2023-08-03 12:30 | Electrocardiogram Report ---
Test Reason : Blood Pressure : / mmHG Vent. Rate : 085 BPM Atrial Rate : 085 BPM P-R Int : 210 ms QRS Dur : 110 ms QT Int : 368 ms P-R-T Axes : 075 024 030 degrees QTc Int : 437 ms Atrial-sensed ventricular-paced rhythm with prolonged AV conduction Premature ventricular complexes Abnormal ECG When compared with ECG of 19-MAR-2015 20:06, Electronic ventricular pacemaker has replaced Sinus rhythm Confirmed by Mati Hudson ([id number]) on 08/03/2023 12:29:59 PM Referred By: REFERRED SELF Confirmed By:Isaías Hudson
--- NOTE | 2023-08-03 19:31 | Billing Data ---
Date of Service August 03, 2023 Coding Level of Care Code 31327 CRITICAL CARE
[2023-08-03] MEDS ORDERED: AMITRIPTYLINE HCL 25 MG TAB PO SCH (21:00)
[2023-08-03] MEDS ORDERED: SIMVASTATIN 20 MG TAB PO SCH (21:00)
== END 2023-08-03 12:49 | disposition home or self-care (01) ==
LOC: ED 20:01 → 1E 08-03 01:10 → INTOOBSV 08-03 01:10 → SUATTDRO 08-03 01:10 → 1E 08-03 04:03